=== PATIENT | female | born 1965 | race Caucasian/White ===

== ENCOUNTER 2019-07-13 09:22 | Outpatient (CLI) | payer BC ==
--- NOTE | 2019-07-13 10:42 | MMO ---
Bilateral MAMMO Bilat Diag [facility]. CLINICAL HISTORY: Patient is 53 years old and is seen for diagnostic exam and lump or thickening in the left breast. The patient has no family history of breast cancer. The patient has no personal history of cancer. The patient has a history of left Ultrasound Guided Core Biopsy in 2015 - benign. VIEWS: The views performed were: bilateral craniocaudal with tomosynthesis; bilateral mediolateral oblique with tomosynthesis; and bilateral mediolateral with tomosynthesis. FILMS COMPARED: The present examination has been compared to prior imaging studies performed at on 07/13/2019. This study has been interpreted with the assistance of computer-aided detection. MAMMOGRAM FINDINGS: There are scattered fibroglandular densities. Finding 1: NO MAMMOGRAPHIC OR SONOGRAPHIC ABNORMALITIES ARE PRESENT TO CORRELATE WITH THE SITE OF PHYSICIAN PALPABLE CONCERN AND PATIENT REPORTED PAIN. Finding 2: There is a biopsy clip seen in the left breast. Finding 3: There are benign appearing calcifications seen in both breasts. There are no suspicious masses, suspicious calcifications, or new areas of architectural distortion. IMPRESSION: FINDING 1: FINDING IN THE LEFT BREAST IS BENIGN. NO MAMMOGRAPHIC OR SONOGRAPHIC ABNORMALITIES ARE PRESENT TO CORRELATE WITH THE SITE OF PHYSICIAN PALPABLE CONCERN AND PATIENT REPORTED PAIN. THE PATIENT WILL BE REFERRED BACK TO HER CLINICIAN FOR FURTHER CARE. BIOPSY SHOULD NOT BE PRECLUDED BY THE ABSCENCE OF IMAGING FINDINGS, IN THE SETTING OF CLINICAL CONCERN FOR MALIGNANCY. FINDING 2: BIOPSY CLIP IN THE LEFT BREAST IS BENIGN. FINDING 3: CALCIFICATIONS IN BOTH BREASTS ARE BENIGN. A ROUTINE FOLLOW-UP MAMMOGRAM IN 1 YEAR IS RECOMMENDED. THE RESULTS OF THIS EXAM WERE SENT TO THE PATIENT. ACR BI-RADS Category 2 - Benign finding MAMMOGRAPHY NOTE: 1. A negative mammogram report should not delay a biopsy if a dominant of clinically suspicious mass is present. 2. Approximately 10% to 15% of breast cancers are not detected by mammography. 3. Adenosis and dense breasts may obscure an underlying neoplasm. Reported by: JUDI PORTILLO MD Electonically Signed: [id number]
--- NOTE | 2019-07-13 12:11 | ULT ---
LEFT BREAST DIAGNOSTIC ULTRASOUND: INDICATION: Pain and temperature fluctuations within the upper outer aspect of the left breast. The physician pa lpated the abnormality within the upper outer aspect of the left breast. FINDINGS: Stanley scale ultrasound images were obtained of the region of the physician palpated interest in the up per outer aspect of the left breast in addition to the region of hot and cold temperature sensation a bnormalities experienced by the patient in this region. No suspicious sonographic abnormality is seen within this location. IMPRESSION: No suspicious sonographic abnormality involving the left breast 12 to 3 o'clock position. Please see the bilateral diagnostic mammogram performed on the same day for [id number] detail. POS: OFF
== END 2019-07-13 09:23 | disposition home or self-care (01) ==
LOC: BICMAMMO 09:22
PROVIDERS: ATTEND Family Medicine
DX: N63.20 Unspecified lump in the left breast, unspecified quadrant (principal); R92.1 Mammographic calcification found on diagnostic imaging of breast
CPT/HCPCS: 77066; G0279

== ENCOUNTER 2024-08-15 08:16 | Outpatient (CLI) | payer BC | END 2024-08-15 08:17 | disposition home or self-care (01) | LOC: BICMAMMO 08:16 | PROVIDERS: ATTEND Family Medicine | DX: R92.8 Other abnormal and inconclusive findings on diagnostic imaging of breast (principal) | CPT/HCPCS: G0279 ==